=== PATIENT | male | born 2000 | race Caucasian/White ===

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

== ENCOUNTER 2022-05-15 11:34 | Outpatient (CLI) | payer OTHER, SELFPAY ==
[2022-05-15 17:43] LABS: Toxigenic C. Diff NEGATIVE (NEGATIVE)
== END 2022-05-15 11:35 | disposition home or self-care (01) ==
DX: R19.7 Diarrhea, unspecified (principal)
CPT/HCPCS: 87045; 87177; 87209; 87427; 87493

== ENCOUNTER 2022-05-20 11:55 | Emergency (ER) | payer OTHER, SELFPAY ==
--- NOTE | ~2022-05-20 | CT_ITS ---
EXAMINATION: CT abdomen pelvis w con DATE: 05/20/2022 13:52 INDICATION: Generalized abdominal pain. TECHNIQUE: Computed tomography (CT) of the abdomen and pelvis was performed with 100 mL Omnipaque 350 intravenous contrast. Automated exposure control and iterative reconstruction technique were employe d. The dose-length product was 643.38 mGy-cm. COMPARISON: None. FINDINGS: The visualized portions of the lung bases demonstrate mild atelectasis. No pleural effusion . The heart size is normal. No pericardial effusion. The liver, gallbladder, spleen, pancreas, adrena l glands, and kidneys are normal. There are no dilated loops of bowel. The appendix is normal. There are no pathologically enlarged lymph nodes. There is no free intraperitoneal fluid. The bones are unr emarkable. IMPRESSION: 1. No etiology for the patient's symptoms. Reviewed, dictated and finalized at location A. E[employer] AND WELLNESS COORDINATOR
[2022-05-20 12:00] VITALS: BP 140/79; PULSE 68; RESP 16; TEMP 36.2; O2SAT 98
[2022-05-20 12:26] LABS: Chloride 108 mmol/L (98-107)
[2022-05-20 12:26] LABS: Basophils Percent Auto 0.4 % (0.2-1.2); Eosinophils Absolute Auto 0.1 K/mm3 (0-0.3); Eosinophils Percent Auto 1.4 % (0-4.4); Hematocrit 48.1 % (42.0-52.0); Hemoglobin 16.4 g/dL (14.0-18.0); Immature Granulocyte Absolute 0.02 K/mm3 (0.00-0.031); Immature Granulocyte Percent A 0.3 % (0-0.5); Lymphocytes Absolute Auto 2.37 K/mm3 (0.9-3.2); Lymphocytes Percent Auto 30.8 % (18.3-44.2); Mean Corpuscular HGB Conc 34.1 g/dl (32-36); Mean Corpuscular Hemoglobin 30.6 pg (26-34); Mean Corpuscular Volume 89.7 fl (80-100); Mean Platelet Volume 9.5 fl (7.4-10.4); Monocytes Absolute Auto 0.5 K/mm3 (0.1-0.6); Monocytes Percent Auto 6.1 % (2.6-8.5); Neutrophils Absolute Auto 4.7 K/mm3 (1.3-6.7); Platelet Count Result 235 k/mm3 (150-375); Red Blood Count 5.36 M/mm3 (4.6-6.20); Red Cell Distribution Width 12.1 % (11.5-14.5); White Blood Count 7.7 K/mm3 (4.5-10.0)
[2022-05-20 12:28] LABS: Partial Thromboplastin Time 28.9 SECONDS (22.3-36.8); Prothrombin Time 12.7 Seconds (11.1-14.7)
[2022-05-20 12:30] LABS: Alanine Aminotransferase 44 U/L (6-50); Albumin Level 4.5 g/dL (3.7-5.6); Alkaline Phosphatase 86 U/L (58-237); Anion Gap 7 mmol/L (8-16); Aspartate Amino Transferase 25 U/L (17-59); Bilirubin,Total 0.4 mg/dL (0.2-1.3); Blood Urea Nitrogen 11 mg/dL (8-21); Calcium 9.2 mg/dL (8.9-10.7); Carbon Dioxide 24 mmol/L (22-30); Estimated CRCL calculation 153 ml/min; Estimated Glomerular Filt Rate > 60; Glucose 99 mg/dL (65-110); Potassium 4.1 mmol/L (3.4-5.0); Sodium 139 mmol/L (134-143)
--- NOTE | 2022-05-20 13:35 | ED.GIBLEED ---
HPI - GI Bleed General Chief complaint: GI Bleed Stated complaint: abd pain, blood in stool, request CT Time Seen by Provider: 05/20/22 12:54 History of Present Illness HPI Narrative: This is a 21-year-old male who denies past medical history, presenting to the emergency department with bloody stools for the past year. He states his stool is still is typically covered with mucus and blood. He denies pain with defecation, but notes epigastric abdominal pain, rated 5/10 and generalized abdominal pain rated 4/10 approximately 2 hours after eating. He also complains of fatigue for the past year. Related Data Home Medications Medication Instructions Recorded Confirmed buspirone 30 mg tablet 30 mg PO BID 02/24/21 02/24/21 quetiapine 25 mg tablet (Seroquel) 25 mg PO HS 02/24/21 02/24/21 Allergies Allergy/AdvReac Type Severity Reaction Status Date / Time clarithromycin Allergy Swelling Verified 02/24/21 11:42 of Lip/Tongue/Throat doxycycline Allergy Rash Verified 02/24/21 11:42 pneumococcal 7-valent Allergy Swelling Verified 02/24/21 11:42 conjugate to [From Prevnar] rofecoxib [From Vioxx] Allergy Unknown Verified 02/24/21 11:42 Review of Systems Review of Systems: CONSTITUTIONAL: Fatigue, sweats, chills Denies fever EYES: Denies visual changes, redness, or discharge. ENT: Denies rhinorrhea, congestion, sore throat, or otalgia. CARDIOVASCULAR: Denies chest pain, palpitations, or edema. RESPIRATORY: Denies cough or dyspnea. GASTROINTESTINAL: abdominal pain, intermittent nausea and vomiting, Denies diarrhea. GENITOURINARY: Denies dysuria or hematuria. SKIN: Denies rash or itching. MUSCULOSKELETAL: Denies back pain, joint pain, or myalgia. NEUROLOGIC: Denies headache, numbness, dizziness, or weakness. PSYCHIATRIC: Denies anxiety or depression. PMFSH Past Medical History Medical History (Updated 05/20/22 @ 14:34 by Oj Chow MD) History of anxiety Social History Social History (Updated 02/24/21 @ 13:28 by Francie Rosas PA-C) Smoking status: Never smoker Exam Narrative: GENERAL: Well-developed, well-nourished, and in no acute distress. HEAD: Normocephalic, atraumatic. EYES: PERRLA and EOMI. ENT: Nares clear, no rhinorrhea or epistaxis. Mucous membranes moist. Oropharynx without tonsillar hypertrophy exudate or other lesions. CHEST: Clear to auscultation. No respiratory distress. No wheezes rales or rhonchi HEART: Regular rate and rhythm. No murmur heard. Normal peripheral pulses. ABDOMEN: Soft, mildly tender in the epigastrium without rebound, guarding or mass, nondistended, normal active bowel sounds. RECTAL: No noted laceration or hemorrhoids, no noted blood on digital rectal exam EXTREMITIES: Normal range of motion. No edema. SKIN: Warm, dry, no rash. NEURO: No focal deficits. Alert and oriented x3. PSYCH: Normal mood and affect. Course Course Emergency Course: 14:31 - Chemistries unremarkable. CBC unremarkable. ESR and CRP are not elevated. CT abdomen pelvis unremarkable. Discussed findings with the patient and recommended that he follow-up with a primary care doctor. Discussed return and emergent precautions including signs/symptoms of acute abdomen. The patient voiced understanding and is comfortable with the plan. All questions answered to his satisfaction. Vital Signs Vital signs: Vital Signs Temperature 97.2 F L 05/20/22 12:00 Pulse Rate 68 05/20/22 12:00 Respiratory Rate 16 05/20/22 12:00 Blood Pressure 140/79 05/20/22 12:00 Pulse Oximetry 98 05/20/22 12:00 Oxygen Delivery Room Air 05/20/22 12:00 Temperature 97.2 F L 05/20/22 12:00 Pulse Rate 84 05/20/22 15:09 Respiratory Rate 16 05/20/22 15:09 Blood Pressure 132/84 05/20/22 15:09 Pulse Oximetry 98 05/20/22 15:09 Oxygen Delivery Room Air 05/20/22 12:00 MDM - GI Bleed MDM Narrative Medical decision making narrative: Plan: Labs, imaging, antiemetics, re
[2022-05-20 13:47] LABS: CRP < 0.5 mg/dL (<1.0); Lipase 33 U/L (23-300)
[2022-05-20 14:09] LABS: Erythrocyte Sedimentation Rate 1 mm/hr (0-20)
[2022-05-20] MEDS: ONDANSETRON HCL ODT 4 MG TABLET PO (14:14)
[2022-05-20 15:09] VITALS: BP 132/84; PULSE 84; RESP 16; O2SAT 98
== END 2022-05-20 15:10 | disposition home or self-care (01) ==
PROVIDERS: Emergency Medicine; Emergency Provider Preventive Medicine Aerospace Medicine
DX: K62.5 Hemorrhage of anus and rectum (principal)
CPT/HCPCS: 36415; 74177; 80053; 83690; 85025; 85610; 85652; 85730; 86140; 86850; 86900; 86901; 99284; A9270; Q9967